=== PATIENT | female | born 1995 | race Two or more races ===

== ENCOUNTER 2018-10-26 02:33 | Emergency (ER) | payer SELFPAY ==
[~2018-10-26] VITALS: Ht 152.4 cm; Wt 42.2 kg
--- NOTE | 2018-10-26 02:35 | NUR ---
ED Nurse Note: RN at the bedside observing pt, charge nurse/ERMD notified regarding sitter.
--- NOTE | 2018-10-26 02:35 | NUR ---
ED Nurse Note: pt brought in by MARYD/CONSTANCE from home c/c self-inflicted lac on left wrist and right finger and palm, per EMS report, pt had argument with boyfriend and during the process she hurt herself. pt currently denies SI/HI/VH/AH, pt reports she had misunderstanding with her bf but denies any hx suicidal attempts nor ideation. HX anxiety but denies taking any medication. pt currently calm and cooperative, AA&ox4, gcs=15, skin warm and dry, resp even and unlabored on RA, -n/v/d, ambulates w/ steady gait, vss, will cont monitor. noted superficial lac on left wrist and right finger and palm, dried blood noted, wound care done and dressing applied.
--- NOTE | 2018-10-26 02:37 | NUR ---
[facility]
--- NOTE | 2018-10-26 02:38 | Emergency Room Report ---
History of Present Illness General Chief Complaint: Laceration Source: Patient, EMS, Law Enforcement (Matthew Huang MD) Present Illness HPI Patient is brought in by EMS after being called by [employer]. She has lacerations to her left wrist and cuts from glass and a cactus on her right hand. She states that she's never been on psychiatric medication. She's not taking psychiatric medication at this time. She denies suicidal ideation to me at this time. She recently moved her from [place] to live with her boyfriend. Tonight she had been drinking alcohol and they had an argument. This led to her grabbing a cactus, breaking a glass and then cutting her wrist. Never seen psychiatrist or therapist. She claims her parents told her she had to find other ways to deal with her anger. Denies drugs. No NV. She has diarrhea when she gets anxious. No fevers, chills, cough, sore throat, abdominal pain, chest pain, back or joint pain, headache. Patient's last menstruation was September 28. 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 She has a job interview next week. No fevers, chills, chest pain, palpitations, dysuria, abdominal pain, shortness of breath, depression, visual changes, headache. (Matthew Huang MD) Allergies: Coded Allergies: No Known Allergies (Unverified , 10/26/18) Patient History Past Medical History: see triage record Pertinent Family History: other - sister with Down's syndrome Social History: Reports: alcohol use Social History Narrative from [place], between jobs Last Menstrual Period: 09/28/18 Now: No Reviewed Nursing Documentation: PMH: Agreed; PSxH: Agreed (Matthew Huang MD) Nursing Documentation-PMH Past Medical History: No History, Except For History Of Psychiatric Problem: Yes - Anxiety (Matthew Huang MD) Review of Systems All Other Systems: negative except mentioned in HPI (Matthew Huang MD) Physical Exam Vital Signs Date Time Temp Pulse Resp B/P (MAP) Pulse Ox O2 Delivery O2 Flow Rate FiO2 10/26/18 02:30 98.2 86 16 123/80 (94) 99 Room Air Sp02 EP Interpretation: reviewed, normal General Appearance: well appearing, no apparent distress, GCS 15 Head: normocephalic Eyes: bilateral eye PERRL, bilateral eye Scleral Injection ENT: moist mucus membranes Neck: supple Respiratory: lungs clear, normal breath sounds Cardiovascular #1: regular rate, rhythm Cardiovascular #2: 2+ radial (R) Gastrointestinal: normal inspection, normal bowel sounds, non tender, no mass, non-distended Musculoskeletal: back normal, gait/station normal, normal range of motion Neurologic: alert, oriented x3, grossly normal Psychiatric: mood/affect normal, no suicidal/homicidal ideation Skin: warm/dry, other - Superficial lacerations L wrist, puncture wounds R hand (Matthew Huang MD) Medical Decision Making Diagnostic Impression: Primary Impression: Suicide gesture Qualified Codes: X83.8XXA - Intentional self-harm by other specified means, initial encounter Additional Impressions: Alcohol intoxication Qualified Codes: F10.929 - Alcohol use, unspecified with intoxication, unspecified Wrist laceration Qualified Codes: S61.519A - Laceration without foreign body of unspecified wrist, initial encounter ER Course Patient presents after suicide gesture with superficial wrist lacerations and puncture wounds R hand. Differential includes suicidal ideation, major depression, lacerations, substance abuse, electrolyte imbalance amongst others. Patient will be evaluated with labs. The wrist will be treated with wound care. Based on her age her tetanus should be up-to-date. The police have place the patient on 5150. Sitter has been ordered. Labs with + BAL and slightly low potassium. Patient resting. Repeat BAL and will give potassium. Resting without complaints. Still denies SI. Needs re-evaluation regarding 5150. Signed out to Dr. Julio. Laboratory Tests Test 10/26/18 02:50 White Blood Count 7.6 K/UL (4.8-10.8) Red Blood Count 5.22 M/UL (4.20-5.40) Hemoglobin 16.0 G/DL (12.0-16.0) Hematocrit 46.6 % (37.0-47.0) Mean Corpuscular Volume 89 FL (80-99) Mean Corpuscular Hemoglobin 30.7 PG (27.0-31.0) Mean Corpuscular Hemoglobin Concent 34.3 G/DL (32.0-36.0) Red Cell Distribution Width 11.2 % (11.6-14.8) L Platelet Count 343 K/UL (150-450) Mean Platelet Volume 6.2 FL (6.5-10.1) L Neutrophils (%) (Auto) 65.9 % (45.0-75.0) Lymphocytes (%) (Auto) 26.5 % (20.0-45.0) Monocytes (%) (Auto) 6.2 % (1.0-10.0) Eosinophils (%) (Auto) 0.3 % (0.0-3.0) Basophils (%) (Auto) 1.0 % (0.0-2.0) Urine Color Pale yellow Urine Appearance Clear Urine pH 5 (4.5-8.0) Urine Specific [place] 1.025 (1.005-1.035) Urine Protein 2+ (NEGATIVE) H Urine Glucose (UA) Negative (NEGATIVE) Urine Ketones 2+ (NEGATIVE) H Urine Blood 2+ (NEGATIVE) H Urine Nitrite Negative (NEGATIVE) Urine Bilirubin Negative (NEGATIVE) Urine Urobilinogen Normal MG/DL (0.0-1.0) Urine Leukocyte Esterase 1+ (NEGATIVE) H Urine RBC 5-10 /HPF (0 - 2) H Urine WBC 2-4 /HPF (0 - 2) Urine Squamous Epithelial Cells Few /LPF (NONE/OCC) Urine Amorphous Sediment Few /LPF (NONE) H Urine Bacteria Few /HPF (NONE) Urine HCG, Qualitative Negative (NEGATIVE) Sodium Level 145 MMOL/L (136-145) Potassium Level 3.3 MMOL/L (3.5-5.1) L Chloride Level 108 MMOL/L (98-107) H Carbon Dioxide Level 23 MMOL/L (21-32) Anion Gap 14 mmol/L (5-15) Blood Urea Nitrogen 12 mg/dL (7-18) Creatinine 0.7 MG/DL (0.55-1.30) Estimate Glomerular Filtration Rate > 60 mL/min (>60) Glucose Level 102 MG/DL (74-106) Calcium Level 8.5 MG/DL (8.5-10.1) Total Bilirubin 0.2 MG/DL (0.2-1.0) Aspartate Amino Transferase (AST) 25 U/L (15-37) Alanine Aminotransferase (ALT) 24 U/L (12-78) Alkaline Phosphatase 119 U/L (46-116) H Total Protein 8.6 G/DL (6.4-8.2) H Albumin 4.6 G/DL (3.4-5.0) Globulin 4.0 g/dL Albumin/Globulin Ratio 1.1 (1.0-2.7) Salicylates Level 0.8 ug/mL (2.8-20) L Urine Opiates Screen Negative (NEGATIVE) Acetaminophen Level < 2 MCG/ML (10-30) L Urine Barbiturates Screen Negative (NEGATIVE) Phencyclidine (PCP) Screen Negative (NEGATIVE) Urine Amphetamines Screen Negative (NEGATIVE) Urine Benzodiazepines Screen Negative (NEGATIVE) Urine Cocaine Screen Negative (NEGATIVE) Urine Marijuana (THC) Screen Negative (NEGATIVE) Serum Alcohol 162 mg/dL (Matthew Huang MD) ER Course Patient was endorsed to me by Dr. Huang. Patient was medically cleared for psychiatric evaluation. Patient noted to be on a 5150 hold. She appears to be stable for transfer. (Rogelio Julio MD) Last Vital Signs Date Time Temp Pulse Resp B/P (MAP) Pulse Ox O2 Delivery O2 Flow Rate FiO2 10/26/18 08:16 99.2 90 20 104/77 99 Room Air Status: improved (Matthew Huang MD) Status: improved (Rogelio Julio MD) Disposition: HOME, SELF-CARE Condition: Stable Scripts Bacitracin Zinc* (BACITRACIN ZINC*) 1 Each Packet 1 APPLIC TOPIC THREE TIMES A DAY, #20 PACKET Prov: Rogelio Julio MD 10/26/18 Matthew Huang MD October 26, 2018 02:38 Rogelio Julio MD October 26, 2018 10:18
--- NOTE | 2018-10-26 02:42 | NUR ---
ED Nurse Note: Nursing Telecommunicator Supervisor informed of 5150, requested a sitter.
[2018-10-26] MEDS ORDERED: Bacitracin Oint UD TOPIC ONE (02:45)
[2018-10-26 03:02] LABS: EOSINOPHILS % (AUTO) 0.3 % (0.0-3.0); HEMATOCRIT 46.6 % (37.0-47.0); LYMPHOCYTES % (AUTO) 26.5 % (20.0-45.0); MEAN CORPUSCULAR VOLUME 89 FL (80-99); MONOCYTES % (AUTO) 6.2 % (1.0-10.0); NEUTROPHILS % (AUTO) 65.9 % (45.0-75.0); PLATELET COUNT 343 K/UL (150-450); RED BLOOD COUNT 5.22 M/UL (4.20-5.40); RED CELL DISTRIBUTION WIDTH 11.2 % (11.6-14.8); WHITE BLOOD COUNT 7.6 K/UL (4.8-10.8)
[2018-10-26 03:03] VITALS: BP 118/81
[2018-10-26 03:06] LABS: APPEARANCE,URINE CLEAR; BILIRUBIN, URINE NEGATIVE (NEGATIVE); COLOR,URINE PALE YELLOW; GLUCOSE, URINE (UA) NEGATIVE (NEGATIVE); KETONES,URINE 2+ (NEGATIVE); LEUKOCYTE ESTERASE ,URINE 1+ (NEGATIVE); NITRITE,URINE NEGATIVE (NEGATIVE); PH,URINE 5 (4.5-8.0); PROTEIN,URINE 2+ (NEGATIVE); UROBILINOGEN,URINE NORMAL MG/DL (0.0-1.0)
--- NOTE | 2018-10-26 03:19 | NUR ---
ED Nurse Note: sitter arrived at the bedside.
[2018-10-26 03:22] LABS: ANION GAP 14 mmol/L (5-15); BLOOD UREA NITROGEN 12 mg/dL (7-18); CALCIUM 8.5 MG/DL (8.5-10.1); CARBON DIOXIDE 23 MMOL/L (21-32); CHLORIDE 108 MMOL/L (98-107); CREATININE 0.7 MG/DL (0.55-1.30); POTASSIUM 3.3 MMOL/L (3.5-5.1); SODIUM 145 MMOL/L (136-145)
[2018-10-26 03:26] LABS: ALANINE AMINOTRANSFERASE 24 U/L (12-78); ALBUMIN 4.6 G/DL (3.4-5.0); ALBUMIN/GLOBULIN RATIO 1.1 (1.0-2.7); ALKALINE PHOSPHATASE 119 U/L (46-116); ASPARTATE AMINO TRANSFERASE 25 U/L (15-37); BILIRUBIN,TOTAL 0.2 MG/DL (0.2-1.0)
--- NOTE | 2018-10-26 03:30 | NUR ---
HAND-OFF: Report given to OKSANA Alfonso and endorsed care. sitter at the bedside, vss, resp even and unlabored, dressing intact.
--- NOTE | 2018-10-26 03:54 | NUR ---
HAND-OFF: Recieved report from RN, pt sleeping in room, sitter at bedside.
--- NOTE | 2018-10-26 05:00 | NUR ---
ED Nurse Note: Pt sleeping, non-labored breathing, no signs of distress. Sitter at bedside, no further orders at this time
[2018-10-26 05:35] VITALS: BP 121/75
--- NOTE | 2018-10-26 06:00 | NUR ---
ED Nurse Note: Pt resting, appears to be sleeping, non-labored breathing, awakens to name. Denies pain at this time. Sitter at bedside, will continue to monitor.
--- NOTE | 2018-10-26 08:00 | NUR ---
ED Nurse Note:pt. is awake had breakfast, sitter is at bed side ,waiting for psych bed
[2018-10-26 08:16] VITALS: BP 104/77
--- NOTE | 2018-10-26 09:00 | NUR ---
ED Nurse Note:sitter is at bed side
--- NOTE | 2018-10-26 10:00 | NUR ---
ED Nurse Note:sitter is at bedside
--- NOTE | 2018-10-26 11:00 | NUR ---
ED Nurse Note:sitter is at bed side, pt. is calm and cooperative, sleeping most of the time
[2018-10-26 12:15] VITALS: BP 110/76
--- NOTE | 2018-10-26 14:00 | NUR ---
ED Nurse Note:pt. was evaluated by psychiatrist dr. Rowe and 51/50 hold was lifted by her,
[2018-10-26] MEDS ORDERED: BACITRACIN ZIN1 EACH TOPIC (14:13)
--- NOTE | 2018-10-26 14:30 | NUR ---
ER DISCHARGE NOTE: Patient is cleared to be discharged per ERMD, pt is aox4, on room air, with stable vital signs. pt was given dc and prescription instructions, pt was able to verbalize understanding, pt id band and iv site removed without complications. pt is able to ambulate with steady gait. pt took all belongings.
--- NOTE | 2018-10-26 14:55 | NUR ---
ED Nurse Note:pt. was picked up by friend, condition stable
[2018-10-26 14:56] VITALS: BP 110/76
--- NOTE | 2018-10-27 00:15 | Consultation ---
DATE OF CONSULTATION: 10/26/2018 HISTORY OF PRESENT ILLNESS: This is a 22-year-old female, who recently moved from [facility] to move in with her boyfriend, who lives in [place]. The patient stated that she has been feeling more depressed, has been missing her family. She got into an argument about her family with her boyfriend. Apparently, the boyfriend was jealous that she is missing her family and was worried that the patient would move back to [place]. The patient stated that she was drunk and started cutting on her wrist. She denies having a history of . The patient was calm and cooperative. Denied any suicidal or homicidal ideation. She stated that she never had any thoughts of suicidal thoughts. The patient is not endorsing any psychotic or manic symptoms. The patient 's cognition is intact. Insight and judgment are fair. She was very pleasant and cooperative during the examination. Her nurse was also present in the room. Her name is . PAST PSYCHIATRIC HISTORY: The patient denied any psychiatric history. She denied any psychotropic medications. She denied any history of self-mutilating behaviors. She denied suicide attempt. PAST MEDICAL HISTORY: Nonsignificant. ALLERGIES: No known drug allergies. SUBSTANCE ABUSE HISTORY: The patient states that she has been drinking alcohol socially. Denied any alcohol abuse. Denied substance abuse disorder. MENTAL STATUS EXAMINATION: The patient is alert and oriented times self, place, and situation. Mood is dysphoric. Affect is constricted, congruent with mood. Thought process is linear. Thought content, no suicidal or homicidal ideations. No delusions. No auditory or visual hallucinations. Insight and judgment are fair. ASSESSMENT: AXIS I: Adjustment disorder. Anxiety disorder, rule out major depressive disorder. AXIS II: Deferred. AXIS III: As above. AXIS IV: Low to moderate. AXIS V: 60. PLAN: We will discontinue the sitter. The patient is not an imminent danger to self or others. The patient may be discharged with referral to a therapist. Yaya Rowe M.D. DR: BEATRIZ JOB#: [id number] CC:
== END 2018-10-26 15:01 | disposition home or self-care (01) ==
LOC: EDBD 02:33 → EMR 03:00
DX: S61.511A Laceration without foreign body of right wrist, initial encounter (principal); F10.929 Alcohol use, unspecified with intoxication, unspecified; X83.8XXA Intentional self-harm by other specified means, initial encounter; W25.XXXA Contact with sharp glass, initial encounter; Y92.9 Unspecified place or not applicable; F41.9 Anxiety disorder, unspecified
CPT/HCPCS: 36415; 80053; 80307; 81003; 81025; 85025; 99285; G0480; 80329; J8499